=== PATIENT | female | born 1995 | race Caucasian/White ===

== ENCOUNTER 2016-08-23 00:43 | Emergency (ER) | payer OTHER ==
[~2016-08-23] VITALS: Ht 162.6 cm; Wt 111.8 kg
[2016-08-23 00:51] VITALS: BP 112/76; PULSE 90; RESP 18; O2SAT 92
[2016-08-23] MEDS ORDERED: Albuterol 2.5 mg/3 mL Inhalation Solution NEB ONE (01:00)
[2016-08-23 01:14] VITALS: PULSE 92; RESP 20; O2SAT 96
[2016-08-23] MEDS ORDERED: Epinephrine Racemic 2.25% 0.5 mL Inhalation Solution NEB ONE (01:20)
--- NOTE | 2016-08-23 01:56 | ED.REPORT ---
HPI-General Illness Date of Service Aug 23, 2016 ED Provider: Marcos Perry MD Patient is a 21 year old female with asthma and lupus who presents to the ED with persistent cough and difficulty breathing this evening, due to 6 days of upper respiratory symptoms. Patient has an inhaler at home, which she has not used it up. Patient denies a productive cough or fever, but admits to a sore throat. Patient was seen at a clinic in [place] 4 days ago and was diagnosed with bronchitis. She was started on antibiotics, which she has been taking as prescribed. Her influenza screen was negative. The patient presents to the ED tonight because her mother believes that she has pneumonia. Patient is an everyday smoker, but states that she has only had 2x cigarettes since she became ill. Nursing Notes Stated Complaint: DIFFICULTY BREATHING Chief Complaint: Respiratory Complaints Nursing Notes Reviewed: Yes Allergies: Coded Allergies: ketorolac (Verified Allergy, Severe, 08/23/16) "arm will swell up and burn" Scheduled Prednisone (PredniSONE) 20 Mg Tablet 60 MG PO DAILY Scheduled PRN Benzonatate (Tessalon Perle) 100 Mg Capsule 200 MG PO TID PRN PRN For Cough General Time Seen by MD: 01:00 Chief Complaint Breathing problem, Cough Hx Obtained From: Patient Arrived By: Walk-in Sudden in Onset?: No Onset Occurred: 6 days ago Symptom Duration: Since onset Severity: Current: No pain currently Severity: Maximum: No pain Recent Healthcare: Recent doctor visit Similar Sx Previous: Yes Past Medical History Past Medical History Lupus Reports: Asthma Past Surgical History none reported Smoking History Current Every Day Smoker Social History Drug Use: THC Other Social History: Good social support, From out of town Ambulatory Status Independent Review of Systems Full Review of Systems Constitutional: Denies: Chills, Fever Ears / Nose / Throat: Reports: Throat pain Respiratory: Reports: Non-productive cough, Shortness of breath, Denies: Prod cough, green Complete sys rev & neg: except as marked. Physical Exam Vital Signs Vital Signs Date Time Temp Pulse Resp B/P Pulse Ox O2 Delivery O2 Flow Rate FiO2 08/23/16 03:01 36.5 100 25 112/65 96 Room Air 08/23/16 01:14 92 20 96 Room Air 08/23/16 00:51 36.7 90 18 112/76 92 Room Air Initial VS: Reviewed Head / Eyes: Atraumatic, Normocephalic, PERRL Cardiovascular: Regular rate & rhythm, Heart sounds normal Abdomen / GI: Soft, Non-tender, No distention Extremities: Vascular intact, Neuro intact Skin: Warm, Dry (moist), No cyanosis Neurologic: Alert, Oriented, Nonfocal Psychiatric: Mood/affect normal, Behavior normal, Normal thought content General/Constitutional: Awake, Alert, No acute distress ENT: Airway patent Pharynx / Tonsils / Uvula: Positive: Pharyngeal erythema (mild) Neck: Supple, No adenopathy Respiratory / Chest: No respiratory distress, No rales, No rhonchi Wheezing / Retractions: Positive: Wheezing inspiratory (with pops) harsh barking cough Interpretation & Diagnostics X-Ray Chest Interpretation Chest Xray Interpretation: Impression: No acute cardiopulmonary process. View: Portable Interpretation / Wet Read by: Wet read ED physician Re-Eval/Medical Decision Med Decision/Clinical Course 21-year-old female smoker with asthma presents with persistent cough on antibiotics for bronchitis. No steroids presently. Lung exam shows some persistent wheezes after treatment but mostly much improved. No other significant findings. Home with her albuterol, Tessalon, and a course of prednisone. Discharged in stable condition. Time of Eval: 02:43 Patient Status: Condition improved Re-Evaluation/Progress Note: X-ray was negative. Patient understands and agrees with the plan to be discharged home. Discharge instructions and follow-up discussed. All questions were addressed. Return to the ED warnings given. Counseled Regarding: Diagnosis, Need for follow-up, When/why to return to ED Discharge & Departure Primary Impression: Acute bronchitis Bronchitis organism: unspecified organism Qualified Code: J20.9 - Acute bronchitis, unspecified Additional Impression: Asthma Asthma severity: unspecified severity Asthma complication type: uncomplicated Qualified Code: J45.909 - Unspecified asthma, uncomplicated Disposition: Home Discharge Condition All VS Reviewed: Yes Condition: Stable Patient Instructions: Acute Bronchitis (ED), Asthma (ED) Additional Instructions: Finish your current antibiotics. Prednisone three tabs daily for five days then quit. Continue your albuterol two puffs every four hours as needed for cough and wheeze Follow-up with your doctor in the office. Quit smoking. Seriously. Referrals: [facility] (PCP) Scribe Attestation Portions of this note were transcribed by Ivonne Magallanes. Dr. Orlando Elam personally performed the history, physical exam and medical decision-making; I reviewed and confirmed the accuracy of the information in the transcribed note. Signed by: Bebo Sharp, 08/23/2016 0244 copies to: [facility] Marcos Perry MD Aug 23, 2016 01:56 Ivonne Magallanes Aug 23, 2016 02:01
[2016-08-23] MEDS ORDERED: Dexamethasone 20 mg/2 mL Oral Solution PO ONE (02:30)
[2016-08-23] MEDS ORDERED: PRE20 PO (02:38)
[2016-08-23] MEDS ORDERED: BENZ-12 PO (02:52)
[2016-08-23 03:01] VITALS: BP 112/65; PULSE 100; RESP 25; O2SAT 96
--- NOTE | 2016-08-23 09:55 | DRSVH ---
PROCEDURE: X-RAY CHEST, TWO VIEWS ([id number]) INDICATIONS: cough, asthma, cigarettes TECHNIQUE: 2 views of the chest were acquired. COMPARISON: None. FINDINGS: Surgical changes and devices: None. Lungs and pleura: No pleural effusions or pneumothorax. Lungs are clear. Mediastinum: Mediastinal contours are normal. Heart size is normal. Bones and chest wall: No suspicious bony abnormalities. Soft tissues appear unremarkable. IMPRESSION: No acute cardiopulmonary disease. Dictated by: Corby Sanchez [facility] Interpreted: Maria Luz Curiel MD on 08/23/2016 at 9:54 Transcribed by: LORENE on 08/23/2016 at 9:54 Approved by: Maria Luz Curiel MD, PhD on 08/23/2016 at 15:50
== END 2016-08-23 03:01 | disposition home or self-care (01) ==
LOC: SED 00:43
DX: J20.9 Acute bronchitis, unspecified (principal); J45.909 Unspecified asthma, uncomplicated; M32.9 Systemic lupus erythematosus, unspecified; F17.200 Nicotine dependence, unspecified, uncomplicated; Z88.6 Allergy status to analgesic agent
CPT/HCPCS: 71020; 81025; 94664; 99284; J7613